=== PATIENT | male | born 1975 | race Caucasian/White ===

== ENCOUNTER 2016-08-08 22:17 | Emergency (ER) | payer BC, OTHER ==
[2016-08-08 22:24] VITALS: BP 166/99; PULSE 102; RESP 16; TEMP 97.7; O2SAT 94
[2016-08-08] MEDS ORDERED: IBUPROFEN 200 MG TAB PO ONE (22:25)
[2016-08-08] MEDS ORDERED: IBUPROFEN 600 MG TAB PO ONE (22:27)
[2016-08-08] MEDS ORDERED: ONDANSETRON DISINTEGRATING 4 MG TAB ONE (22:34)
[2016-08-08] MEDS ORDERED: ONDANSETRON DISINTEGRATING 4 MG TAB PO ONE (22:40)
--- NOTE | 2016-08-08 22:44 | EDPHY ---
H & P Stated Complaint: L heel pain after running in baseball, heard a pop Time Seen by Provider: 08/08/16 22:26 HPI/ROS: Chief Complaint: Left leg pain HPI: 40-year-old male was running this evening while playing softball when he felt a pop in the back of his left calf. Patient has had severe pain in his left calf since then. He has been unable to plantar flex his foot since then. No prior injuries. Has noticed increased swelling in his left calf. ROS: 10 point Review of Systems is negative except as noted in the HPI. PMH: Sinus surgery Social History: No smoking, no alcohol, no recreational drug use Family History: non-contributory Physical Exam: Gen: Awake, Alert, No Distress Ext: Left calf is swollen and tender to touch. Patient has a positive Mike test., there is a noted defect in the Achilles tendon. No bony ankle tenderness foot tenderness. Skin: no rash Neuro: CN II-XII intact, Sensation grossly intact, Strength 5/5 in bilateral upper and lower extremities - Medical/Surgical History Hx Asthma: No Hx Chronic Respiratory Disease: No Hx Diabetes: No Hx Cardiac Disease: No Hx Renal Disease: No Hx Cirrhosis: No Hx Alcoholism: No Hx HIV/AIDS: No Hx Splenectomy or Spleen Trauma: No Other PMH: septoplasy, allergies, GERD - Social History Smoking Status: Never smoked Constitutional: Initial Vital Signs Temperature (C) 36.5 C 08/08/16 22:22 Heart Rate 102 H 08/08/16 22:22 Respiratory Rate 16 08/08/16 22:22 Blood Pressure 166/99 H 08/08/16 22:22 O2 Sat (%) 94 08/08/16 22:22 O2 Delivery Mode Room Air Allergies/Adverse Reactions: No Known Allergies Allergy (Verified 08/08/16 22:20) Home Medications: Medication Instructions Recorded Allergy Drops 08/08/16 Cetirizine HCl [ZYRTEC] 08/08/16 Fluticasone Nasal [Flonase Nasal 08/08/16 [place]] Lansoprazole [Prevacid] 08/08/16 Medical Decision Making ED Course/Re-evaluation: 40-year-old male with a classic history and physical exam for a Achilles tendon rupture. Will get an x-ray to rule out avulsion or other fractures well. Patient will be placed in a splint with plantar flexion. Will refer to Orthopedics for follow-up for surgical repair. - Data Points Medications Given: Discontinued Medications Ibuprofen (Motrin) 600 mg PO EDNOW ONE Stop: 08/08/16 22:26 Last Admin: 08/08/16 22:32 Dose: 600 mg Departure - Departure Disposition: Home, Routine, Self-Care Clinical Impression: Achilles tendon rupture Condition: Good Instructions: Achilles Tendon Rupture (ED), Crutch Instructions (ED), Splint Care (ED) Additional Instructions: Follow up with Orthopedics for further evaluation. Call tomorrow morning after a 30 to make an appointment. Continue using crutches and leave splint in place until seen by Orthopedics. Return to the emergency depart for increasing pain, chest pain, shortness of breath, numbness, tingling, or any other concerns. Referrals: Leon Conley MD [Medical Doctor] - As per Instructions
[2016-08-08] MEDS ORDERED: HYDROCOD/APAP 5/325 PREPACK#6 BTL TAKEHOME ONE (22:54)
[2016-08-08] MEDS ORDERED: ONDANSETRON 4MG PREPACK#2 BTL TAKEHOME ONE ×2 (23:03→23:05)
== END 2016-08-08 23:22 | disposition home or self-care (01) ==
LOC: CED 22:17
DX: S86.012A Strain of left Achilles tendon, initial encounter (principal); X58.XXXA Exposure to other specified factors, initial encounter; Y99.8 Other external cause status; Y93.64 Activity, baseball
CPT/HCPCS: 73610-PO